=== PATIENT | male | born 1970 | race Hispanic/Latino ===

== ENCOUNTER 2018-06-26 18:00 | Inpatient (IN) | payer SELFPAY ==
[2018-06-26] MEDS ORDERED: VIBRAMYCIN PO ONE (19:21)
[2018-06-26] MEDS ORDERED: PERCOCET 5/325 PO ONE (19:21)
[2018-06-26] MEDS ORDERED: BOOSTRIX IM ONE (19:23)
--- NOTE | 2018-06-26 19:24 | Emergency Department Report ---
Blank Doc - Documentation Documentation: 48-year-old male presents to the hospital with complaints of dog bite from k9 dog while trying to run away from police. Patient has dog bites to his left lower leg and complains of severe pain. Tetanus is not up-to-date Patient will need copious wound irrigation to prevent infection Tetanus, doxycycline, and Percocet ordered Patient to be transferred to [facility] for irrigation and loose wound approximation of larger dog bite wound. Midlevel to evaluate
--- NOTE | 2018-06-26 21:34 | Emergency Department Report ---
<LAMBERTMARTHA Kami - Last Filed: 06/27/18 00:15> ED Animal Bite HPI - General Chief Complaint: Animal Bite Stated Complaint: DOG BITE Time Seen by Provider: 06/26/18 19:07 - Related Data Previous Rx's Medication Instructions Recorded Last Taken Type levoFLOXacin [Levaquin TAB] 750 mg PO Q24HR #5 tablet 06/28/18 Unknown Rx metroNIDAZOLE [Flagyl TAB] 500 mg PO Q8HR #15 tablet 06/28/18 Unknown Rx oxyCODONE /ACETAMINOPHEN [Percocet 1 tab PO Q6H PRN #10 tablet 06/28/18 Unknown Rx 5/325 mg] Allergies Allergy/AdvReac Type Severity Reaction Status Date / Time Penicillins Allergy Swelling Verified 06/26/18 19:19 ED Review of Systems ROS: Stated complaint: DOG BITE Other details as noted in HPI ED Past Medical Hx - Medications Home Medications: Home Medications Medication Instructions Recorded Confirmed Last Taken Type levoFLOXacin [Levaquin TAB] 750 mg PO Q24HR #5 tablet 06/28/18 Unknown Rx metroNIDAZOLE [Flagyl TAB] 500 mg PO Q8HR #15 tablet 06/28/18 Unknown Rx oxyCODONE /ACETAMINOPHEN [Percocet 1 tab PO Q6H PRN #10 tablet 06/28/18 Unknown Rx 5/325 mg] ED Course Vital Signs 06/26/18 06/27/18 06/27/18 18:29 00:52 03:30 Temperature 98 F 97.4 F L Pulse Rate 75 77 Pulse Rate [ 80 Right Radial] Respiratory 16 17 17 Rate Blood Pressure 129/73 Blood Pressure 139/85 [Left] O2 Sat by Pulse 100 97 Oximetry 06/27/18 03:41 Temperature Pulse Rate 82 Pulse Rate [ Right Radial] Respiratory Rate Blood Pressure Blood Pressure [Left] O2 Sat by Pulse Oximetry Critical care attestation.: If time is entered above; I have spent that time in minutes in the direct care of this critically ill patient, excluding procedure time. ED Disposition Clinical Impression: Laceration, Abrasion, Rectal bleeding Dog bite Qualifiers: Encounter type: initial encounter Qualified Code(s): W54.0XXA - Bitten by dog, initial encounter Disposition: OP ADMIT IP TO THIS HOSP Condition: Stable ED Medical Decision Making - Lab Data Result diagrams: 06/26/18 23:04 06/26/18 23:04 Lab Results 06/26/18 06/26/18 06/26/18 Range/Units 23:04 23:04 23:04 WBC 12.3 H (4.5-11.0) K/mm3 RBC 4.12 (3.65-5.03) M/mm3 Hgb 12.8 (11.8-15.2) gm/dl Hct 37.7 (35.5-45.6) % MCV 92 (84-94) fl MCH 31 (28-32) pg MCHC 34 (32-34) % RDW 14.7 (13.2-15.2) % Plt Count 287 (140-440) K/mm3 Lymph % (Auto) 26.0 (13.4-35.0) % [place] % (Auto) 6.6 (0.0-7.3) % Eos % (Auto) 0.7 (0.0-4.3) % Baso % (Auto) 0.5 (0.0-1.8) % Lymph # 3.2 (1.2-5.4) K/mm3 [place] # 0.8 (0.0-0.8) K/mm3 Eos # 0.1 (0.0-0.4) K/mm3 Baso # 0.1 (0.0-0.1) K/mm3 Seg Neutrophils % 66.2 (40.0-70.0) % Seg Neutrophils # 8.1 H (1.8-7.7) K/mm3 PT (12.2-14.9) Sec. INR (0.87-1.13) APTT (24.2-36.6) Sec. Sodium 142 (137-145) mmol/L Potassium 4.1 (3.6-5.0) mmol/L Chloride 104.0 (98-107) mmol/L Carbon Dioxide 25 (22-30) mmol/L Anion Gap 17 mmol/L BUN 15 (9-20) mg/dL Creatinine 1.0 (0.8-1.5) mg/dL Estimated GFR > 60 ml/min BUN/Creatinine Ratio 15 % Glucose 103 H (75-100) mg/dL Calcium 8.8 (8.4-10.2) mg/dL Total Bilirubin 0.20 (0.1-1.2) mg/dL AST 32 (5-40) units/L ALT 18 (7-56) units/L Alkaline Phosphatase 111 (35-129) units/L Total Protein 6.5 (6.3-8.2) g/dL Albumin 4.0 (3.9-5) g/dL Albumin/Globulin Ratio 1.6 % Lipase 28 (13-60) units/L // Range/Units 23:04 WBC (4.5-11.0) K/mm3 RBC (3.65-5.03) M/mm3 Hgb (11.8-15.2) gm/dl Hct (35.5-45.6) % MCV (84-94) fl MCH (28-32) pg MCHC (32-34) % RDW (13.2-15.2) % Plt Count (140-440) K/mm3 Lymph % (Auto) (13.4-35.0) % [place] % (Auto) (0.0-7.3) % Eos % (Auto) (0.0-4.3) % Baso % (Auto) (0.0-1.8) % Lymph # (1.2-5.4) K/mm3 [place] # (0.0-0.8) K/mm3 Eos # (0.0-0.4) K/mm3 Baso # (0.0-0.1) K/mm3 Seg Neutrophils % (40.0-70.0) % Seg Neutrophils # (1.8-7.7) K/mm3 PT 13.3 (12.2-14.9) Sec. INR 0.96 (0.87-1.13) APTT 24.7 (24.2-36.6) Sec. Sodium (137-145) mmol/L Potassium (3.6-5.0) mmol/L Chloride (98-107) mmol/L Carbon Dioxide (22-30) mmol/L Anion Gap mmol/L BUN (9-20) mg/dL Creatinine (0.8-1.5) mg/dL Estimated GFR ml/min BUN/Creatinine Ratio % Glucose (75-100) mg/dL Calcium (8.4-10.2) mg/dL Total Bilirubin (0.1-1.2) mg/dL AST (5-40) units/L ALT (7-56) units/L Alkaline Phosphatase (35-129) units/L Total Protein (6.3-8.2) g/dL Albumin (3.9-5) g/dL Albumin/Globulin Ratio % Lipase (13-60) units/L <ROSALBACHRISTIAN - Last Filed: 06/28/18 22:40> ED Animal Bite HPI - General Source: patient, EMS Mode of arrival: Stretcher Limitations: No Limitations - History of Present Illness Initial Comments: This is a 48-year-old male brought by [facility] nontoxic, well nourished in appearance, no acute signs of distress presents to the ED with c/o of dog bite. Patient stated he was bitten by a canine dog this evening. Patient denies any other trauma. Patient denies any headache, stiff neck, numbness, tingling, chest pain, shortness of breath, fever, chills nausea vomiting. Patient denies any significant past medical history. Allergies includes penicillin. Denies tetanus UTD. MD Complaint: animal bite -: This evening Left: Leg Animal: dog Animal Control Notified: No Description: immunizations UTD Mechanism: bite Pain Description: sharp Severity scale (0 -10): 8 Associated Symptoms: none. denies: erythema, discharge from wound, bleeding, fever, chills, rash, loss of consciousness, cough, headache, diaphoresis, shortness of breath Treatments Prior to Arrival: wound dressing(s) - Related Data Patient Tetanus UTD: No ED Review of Systems Constitutional: denies: chills, fever Eyes: denies: eye pain, eye discharge, vision change ENT: denies: ear pain, throat pain Respiratory: denies: cough, shortness of breath, wheezing Cardiovascular: denies: chest pain, palpitations Endocrine: no symptoms reported Gastrointestinal: denies: abdominal pain, nausea, diarrhea Genitourinary: denies: urgency, dysuria Musculoskeletal: denies: back pain, joint swelling, arthralgia Skin: denies: rash, lesions Neurological: denies: headache, weakness, paresthesias Psychiatric: denies: anxiety, depression Hematological/Lymphatic: denies: easy bleeding, easy bruising ED Past Medical Hx - Past Medical History Previous Medical History?: No - Surgical History Past Surgical History?: Yes Additional Surgical History: foot. stomach - Social History Smoking Status: Current Every Day Smoker Substance Use Type: Methamphetamines ED Physical Exam - General Limitations: No Limitations General appearance: alert, in no apparent distress - Head Head exam: Present: atraumatic, normocephalic - Eye Eye exam: Present: normal appearance - ENT ENT exam: Present: normal exam, mucous membranes moist - Neck Neck exam: Present: normal inspection - Respiratory Respiratory exam: Present: normal lung sounds bilaterally. Absent: respiratory distress, wheezes, rales, rhonchi, stridor, chest wall tenderness, accessory muscle use, decreased breath sounds, prolonged expiratory - Cardiovascular Cardiovascular Exam: Present: regular rate, normal rhythm, normal heart sounds. Absent: bradycardia, tachycardia, irregular rhythm, systolic murmur, diastolic murmur, rubs, gallop - GI/Abdominal GI/Abdominal exam: Present: soft, normal bowel sounds. Absent: distended, tenderness, guarding, rebound, rigid, diminished bowel sounds - Rectal Rectal exam: Present: deferred - Extremities Exam Extremities exam: Present: normal inspection, full ROM, tenderness, normal capillary refill. Absent: joint swelling - Expanded Lower Extremity Exam Left Hip exam: Present: normal inspection, full ROM. Absent: tenderness, swelling Upper Leg exam: Present: normal inspection, full ROM. Absent: tenderness, swelling Knee exam: Present: normal inspection, full ROM. Absent: tenderness, swelling Lower Leg exam: Present: normal inspection, full ROM, tenderness, abrasion. Absent: swelling, laceration, ecchymosis, deformity, crepidus, dislocation, erythema, palpable cord, Sebastian's sign Ankle exam: Present: normal inspection, full ROM. Absent: tenderness, swelling Foot/Toe exam: Present: normal inspection, full ROM. Absent: tenderness, swelling Neuro vascular tendon exam: Present: no vascular compromise. Absent: pulse deficit, abnormal cap refill, motor deficit, sensory deficit, tendon deficit, extremity cold to touch, pallor, abnormal 2-point discrimination, decreased fine /light touch, foot drop, peroneal nerve deficit, significant pain with passive ROM of distal joint Gait: Positive: observed and normal 1 - 1 cm superfical abrasion dog bite x2 2 - 2 cm superfical laceration 3 - 1 cm superfical abrasion dog bite - Back Exam Back exam: Present: normal inspection, full ROM. Absent: tenderness, CVA tenderness (R), CVA tenderness (L), muscle spasm, paraspinal tenderness, vertebral tenderness, rash noted - Neurological Exam Neurological exam: Present: alert, oriented X3, normal gait - Psychiatric Psychiatric exam: Present: normal affect, normal mood - Skin Skin exam: Present: warm, dry, intact, normal color. Absent: rash ED Course - Reevaluation(s) Reevaluation #1: 06/26/18 21:36 Patient is speaking in full sentences with no signs of distress noted. - Laceration /Wound Repair Left Leg Wound Location: lower extremity (leg leg) Wound Length (cm): 2 Wound's Depth, Shape: superficial Wound Explored: contaminated Irrigated w/ Saline (ccs): 40 Betadine Prep?: Yes Anesthesia: Lidocaine w/ Epi (2% with 1:200,000) Volume Anesthetic (ccs): 3 Wound Debrided: minimal Wound Repaired With: sutures Suture Size/Type: 4:0, proline Number of Sutures: 2 Layer Closure?: No Sterile Dressing Applied?: Yes Progress: Under sterile field, I used Betadine to clean the area. I then used 40 mL of normal saline to flush the area. I then used 2% lidocaine with epi 1-200,000 and injected 3 mL to the wound. I then used a 4-0 Prolene to loosely approximate laceration. Number of stitches 2. I then applied a sterile 4 x 4 with tape. Minimal bleeding noted but is under control. Patient tolerated procedure well with no signs of distress. ED Disposition Is pt being admited?: Yes ED Medical Decision Making - Lab Data Result diagrams: 06/28/18 05:54 06/27/18 05:13 - Medical Decision Making This is a 48-year-old male that presents with laceration and abrasions s/p dog bite. Patient is stable and was examined by me. The laceration has been loosely approximated and patient tolerated well. A sterile dressing has been applied. Patient was educated on proper wound care. Abrasions and laceration has been cleaned with soap and water and Betadine. Patient is discharged with Bactrim and Motrin. Patient was instructed to return in 10 days for suture removal. Patient was instructed to refer to Follow-up with a primary care doctor in 3-5 days or if symptoms worsen and continue return to emergency room as soon as possible. At time of discharge, the patient does not seem toxic or ill in appearance. No acute signs of distress noted. Patient agrees to discharge treatment plan of care. No further questions noted by the patient. While patient was getting discharged, patient stated that he went to the restroom and had a bowel movement and saw signifacnt amount of blood. Patient then went to the restroom again, and asked me to look at the stool, I saw bright red blood in the toilet as well as the rectum area. I will order labs, IV fluids, and CT of abdomen and care if signed out to Dr. Lambert for further treatment and exam.
[2018-06-26] MEDS ORDERED: NACL 0.9% 1000 ML 1,000 ML IV ONE (22:41)
[2018-06-26 23:23] LABS: Basophils # (Auto) 0.1 K/mm3 (0.0-0.1); Basophils % (Auto) 0.5 % (0.0-1.8); Eosinophils # (Auto) 0.1 K/mm3 (0.0-0.4); Eosinophils % (Auto) 0.7 % (0.0-4.3); Hematocrit 37.7 % (35.5-45.6); Hemoglobin 12.8 gm/dl (11.8-15.2); Lymphocytes # (Auto) 3.2 K/mm3 (1.2-5.4); Mean Corpuscular HGB Conc 34 % (32-34); Mean Corpuscular Hemoglobin 31 pg (28-32); Mean Corpuscular Volume 92 fl (84-94); Monocytes # (Auto) 0.8 K/mm3 (0.0-0.8); Monocytes % (Auto) 6.6 % (0.0-7.3); Platelet Count 287 K/mm3 (140-440); Red Blood Count 4.12 M/mm3 (3.65-5.03); Red Cell Distribution Width 14.7 % (13.2-15.2)
[2018-06-26 23:38] LABS: INR 0.96 (0.87-1.13)
[2018-06-26 23:39] LABS: Partial Thromboplastin Time 24.7 Sec. (24.2-36.6)
[2018-06-26 23:47] LABS: Alanine Aminotransferase 18 units/L (7-56); BUN/Creatinine Ratio 15; Blood Urea Nitrogen 15 mg/dL (9-20); Calcium 8.8 mg/dL (8.4-10.2); Hemolysis Index 9
--- NOTE | 2018-06-27 00:15 | Emergency Department Report ---
Blank Doc - Documentation Documentation: Patient was treated by [facility] for acute dog bite and developed rectal bleeding while in the ED. Patient states he felt like he had to have a bowel movement and to the restroom and had grossly bloody output without much stool. I reexamined the patient. Anus without signs of obvious hemorrhoids. Guaiac positive gross blood in stool obtained from rectal vault on exam. Abdomen is nontender with multiple abdominal scars. Patient states he had a lot of abdominal surgeries and recall what they were. The only when he is able to recall is when abdominal muscles were removed to be place in his left foot. Patient denies a previous history of rectal bleeding in bloody output did not began until he came into the ED. Labs reviewed and no signs of anemia or coagulopathy No signs of cardiovascular instability vital signs stable sea air land officer left after decision to admit. Warrants issued GI consultation. Case d/w Dr Yanez, will consult Patient will need admission to the hospital
[2018-06-27] MEDS ORDERED: ZOFRAN IV PRN (01:39)
[2018-06-27] MEDS ORDERED: TYLENOL PO PRN (01:39)
[2018-06-27] MEDS ORDERED: SODIUM CHLORIDE FLUSH SYRINGE 10 ML IV PRN (01:39)
[2018-06-27] MEDS ORDERED: NACL 0.9% 1000 ML 1,000 ML IV SCH (02:00)
[2018-06-27 02:23] LABS: Hematocrit 35.1 % (35.5-45.6)
--- NOTE | 2018-06-27 02:29 | Cat Scan Report ---
FINAL REPORT EXAM: CT ABDOMEN PELVIS W CON HISTORY: abd pain with rectal bleeding TECHNIQUE: Routine axial imaging was obtained of the abdomen and pelvis following the intravenous injection of 100 cc of Omnipaque 350. Oral contrast was not administered. Delayed imaging was obtained through the kidneys ureters and bladder. Sagittal and coronal reconstructions were reviewed. FINDINGS: The lung bases do not show infiltrates or effusions. There is a small hiatal hernia. The liver, gallbladder, biliary tree, pancreas, spleen, and adrenal glands appear normal. The kidneys enhance normally. There is a 17 mm in diameter cortical cyst laterally in the right kidney. There is no evidence hydronephrosis. The abdominal aorta is normal in caliber. The bowel loops are normal in caliber and course. The appendix is not enlarged. There is no evidence of free fluid or adenopathy. In the pelvis the prostate gland is normal size and contains calcifications. The bladder appears normal. The abdominal wall musculature reveals atrophy of the right rectus abdominus muscle. There is moderate sized umbilical hernia containing omental fat. The bones and soft tissues reveal areas of scar formation the right side of the abdominal wall presumably postsurgical in origin. There is multilevel disc degeneration in the lumbar spine. IMPRESSION: No acute process in the abdomen and pelvis. Moderate size umbilical hernia containing omental fat. Small cortical cysts in the right kidney. Normal appendix. Atrophy of the right rectus abdominus muscle. Right-sided inguinal hernia containing omental fat. Areas of subcutaneous scar formation along the right side of the abdominal wall presumably postsurgical in origin. Multilevel disc degeneration in the lumbar spine.
[2018-06-27 05:33] LABS: Basophils # (Auto) 0.1 K/mm3 (0.0-0.1); Basophils % (Auto) 0.5 % (0.0-1.8); Eosinophils # (Auto) 0.2 K/mm3 (0.0-0.4); Eosinophils % (Auto) 2.1 % (0.0-4.3); Hematocrit 34.8 % (35.5-45.6); Hemoglobin 12.1 gm/dl (11.8-15.2); Lymphocytes # (Auto) 3.2 K/mm3 (1.2-5.4); Mean Corpuscular HGB Conc 35 % (32-34); Mean Corpuscular Hemoglobin 32 pg (28-32); Mean Corpuscular Volume 92 fl (84-94); Monocytes # (Auto) 0.7 K/mm3 (0.0-0.8); Platelet Count 248 K/mm3 (140-440); Red Blood Count 3.79 M/mm3 (3.65-5.03); Red Cell Distribution Width 14.3 % (13.2-15.2)
[2018-06-27 05:58] LABS: BUN/Creatinine Ratio 13; Blood Urea Nitrogen 12 mg/dL (9-20); Hemolysis Index 8
--- NOTE | 2018-06-27 06:28 | History and Physical Report ---
History of Present Illness Date of examination: 06/27/18 Date of admission: 06/27/18 01:39 History of present illness: 48 year old man with no medical problems comes to the emergency room because he received a dog bite and was treated in the fast track. His leg was sutured. He is complaining of wanting to use the bathroom to have a bowel movement, when he got to the bathroom, he had usual amount of blood coming out. He also complained of abdominal pain, right side that feels like a twisting sensation, intermittent ever 1 minute, intensity following 10, no radiation, he can't identify exacerbating or relieving factor. No previous history of blood per rectum Review of systems Constitutional: no weight loss, chills, fever Ears, eyes, nose, mouth and throat: no nasal congestion, no nasal discharge, no sinus pressure, no vision change, no red eye. Neck: No neck pain or rigidity. Cardiovascular: no chest pain, palpitations Respiratory: no cough, shortness of breath Gastrointestinal: + abdominal pain hematochezia Genitourinary : no frequency , no hematuria Musculoskeletal: no joint swelling or muscle ache Integumentary: no rash, no pruritis Neurological: no parathesias, no numbness, no focal weakness Endocrine: no cold or heat intolerance, no polyuria or polydipsia Hematologic/Lymphatic: no easy bruising, no easy bleeding, no gland swelling Allergic/Immunologic: no urticaria, no angioedema. PAST MEDICAL HISTORY: None PAST SURGICAL HISTORY: Surgery on leg, abdomen SOCIAL HISTORY: No alcohol, no drugs, smoke one pack a day FAMILY HISTORY: Hypertension Medications and Allergies Allergies Allergy/AdvReac Type Severity Reaction Status Date / Time Penicillins Allergy Swelling Verified 06/26/18 19:19 Home Medications Medication Instructions Recorded Confirmed Last Taken Type levoFLOXacin [Levaquin TAB] 750 mg PO Q24HR #5 tablet 06/28/18 Unknown Rx metroNIDAZOLE [Flagyl TAB] 500 mg PO Q8HR #15 tablet 06/28/18 Unknown Rx oxyCODONE /ACETAMINOPHEN [Percocet 1 tab PO Q6H PRN #10 tablet 06/28/18 Unknown Rx 5/325 mg] Active Meds: Active Medications Acetaminophen (Tylenol) 650 mg PO Q4H PRN PRN Reason: Pain MILD(1-3)/Fever >100.5/DRIVER Sodium Chloride (Nacl 0.9% 1000 Ml) 1,000 mls @ 150 mls/hr IV DIRECT ALEJO Ondansetron HCl (Zofran) 4 mg IV Q8H PRN PRN Reason: Nausea And Vomiting Oxycodone/Acetaminophen (Percocet 5/325) 1 tab PO Q6H PRN PRN Reason: Pain, Moderate (4-6) Sodium Chloride (Sodium Chloride Flush Syringe 10 Ml) 10 ml IV BID ALEJO Sodium Chloride (Sodium Chloride Flush Syringe 10 Ml) 10 ml IV PRN PRN PRN Reason: LINE FLUSH Exam - Physical Exam Narrative exam: Gen. appearance: Patient lying in bed, no apparent distress HEENT: Normocephalic, atraumatic, pupils equally round and reactive to light, extraocular movement intact, and no sclericterus,. No JVD or thyromegaly or nodule,neck supple, no carotid bruit ,mucous membranes moist, no exudate or erythema Heart: S1, S2, regular rate and rhythm Lungs: Clear bilaterally, breathing comfortable Abdomen: Positive bowel sounds, non-tender, nondistended, no organomegaly Extremity:no edema cyanosis, clubbing, left leg wrapped in a bandage Skin: no rash, dry, warm Neuro: Oriented 3, cranial nerves II-12 intact, speech is fluent, motor and sensory intact - Constitutional Vitals: Temp Pulse Resp BP Pulse Ox 98.3 F 71 22 133/93 93 06/27/18 04:38 06/27/18 04:38 06/27/18 04:38 06/27/18 04:38 06/27/18 04:38 Results - Labs CBC & Chem 7: 06/28/18 05:54 06/27/18 05:13 Labs: Abnormal lab results 06/26/18 06/26/18 06/27/18 Range/Units 23:04 23:04 02:14 WBC 12.3 H (4.5-11.0) K/mm3 Hct 35.1 L (35.5-45.6) % MCHC (32-34) % Seg Neutrophils # 8.1 H (1.8-7.7) K/mm3 Carbon Dioxide (22-30) mmol/L Glucose 103 H (75-100) mg/dL Calcium (8.4-10.2) mg/dL 06/27/18 06/27/18 Range/Units 05:13 05:13 WBC (4.5-11.0) K/mm3 Hct 34.8 L (35.5-45.6) % MCHC 35 H (32-34) % Seg Neutrophils # (1.8-7.7) K/mm3 Carbon Dioxide 21 L (22-30) mmol/L Glucose 131 H (75-100) mg/dL Calcium 8.0 L (8.4-10.2) mg/dL - Imaging and Cardiology EKG: image reviewed CT scan - abdomen: report reviewed CT scan - pelvis: report reviewed Assessment and Plan Assessment Blood per rectum Status post dog bite Plan Admit to medicine Check serial hemoglobin, start IV fluids Consult GI, DVT prophylaxis
[2018-06-27 09:36] LABS: Hematocrit 35.6 % (35.5-45.6); Hemoglobin 12.4 gm/dl (11.8-15.2)
[2018-06-27] MEDS: SODIUM CHLORIDE FLUSH SYRINGE 10 ML IV SCH ×2 (10:55→22:32)
--- NOTE | 2018-06-27 11:32 | Gastroenterology Consultation ---
<EDNA MORAN - Last Filed: 06/27/18 11:44> History of Present Illness - Reason for Consult Consult date: 06/27/18 rectal bleeding Requesting physician: MARTHA ROBINS - History of Present Illness Patient is a 48 y/o male with PMH of substance abuse who was brought to ED by [facility] after receiving a dog bite while trying to run away from police. While in ED he had a BM with rectal bleeding with bright red blood to which GI has been consulted. CT showed an umbilical hernia containing omental fat and kidney cysts but no acute process. This morning patient was resting in bed w/o acute distress. No further active signs of bleeding overnight or this am. No hematemesis or melena. Admits to intermittent right sided abdominal cramping that has been chronic s/p abdominal surgery over 10 years ago (muscle from stomach was removed and used to repair foot injury). Denies fever, wt loss, CP, SOB, dizziness, N/V, diarrhea, or constipation. Tolerating clears. No rectal pain or recent rectal trauma. No hx of GI bleeding or previous colonoscopy. Past History Past Medical History: No medical history Past Surgical History: Other (stomach, foot) Social history: smoking, other (methamphetamines) Family history: hypertension Medications and Allergies Allergies Allergy/AdvReac Type Severity Reaction Status Date / Time Penicillins Allergy Swelling Verified 06/26/18 19:19 Home Medications Medication Instructions Recorded Confirmed Last Taken Type No Known Home Medications [No 06/27/18 06/27/18 Unknown History Reported Home Medications] Active Meds: Active Medications Acetaminophen (Tylenol) 650 mg PO Q4H PRN PRN Reason: Pain MILD(1-3)/Fever >100.5/DRIVER Sodium Chloride (Nacl 0.9% 1000 Ml) 1,000 mls @ 150 mls/hr IV DIRECT ALEJO Ondansetron HCl (Zofran) 4 mg IV Q8H PRN PRN Reason: Nausea And Vomiting Oxycodone/Acetaminophen (Percocet 5/325) 1 tab PO Q6H PRN PRN Reason: Pain, Moderate (4-6) Sodium Chloride (Sodium Chloride Flush Syringe 10 Ml) 10 ml IV BID [facility] Last Admin: 06/27/18 10:55 Dose: 10 ml Sodium Chloride (Sodium Chloride Flush Syringe 10 Ml) 10 ml IV PRN PRN PRN Reason: LINE FLUSH Review of Systems - Review of Systems All systems: negative Gastrointestinal: abdominal pain (chronic, stable (CT negative)), BRBPR Exam - Constitutional Vital Signs: Temp Pulse Resp BP Pulse Ox 97.8 F 64 20 124/84 96 06/27/18 07:51 06/27/18 07:51 06/27/18 07:51 06/27/18 07:51 06/27/18 10:25 General appearance: no acute distress, disheveled - Respiratory Respiratory: bilateral: CTA - Cardiovascular Rhythm: regular Heart Sounds: Present: S1 & S2 - Gastrointestinal General gastrointestinal: Present: soft, non-tender, non-distended, normal bowel sounds, other (+scars from previous surgery) Rectal Exam: normal rectal tone, stool brown, no stool bloody, no mass - Musculoskeletal Musculoskeletal: other (dressing on Left leg) - Neurologic Neurological: alert and oriented x3 - Labs CBC & Chem 7: 06/27/18 08:44 06/27/18 05:13 Lab Results: Laboratory Results - last 24 hr 06/26/18 06/26/18 06/26/18 23:04 23:04 23:04 WBC 12.3 H RBC 4.12 Hgb 12.8 Hct 37.7 MCV 92 MCH 31 MCHC 34 RDW 14.7 Plt Count 287 Lymph % (Auto) 26.0 [place] % (Auto) 6.6 Eos % (Auto) 0.7 Baso % (Auto) 0.5 Lymph # 3.2 [place] # 0.8 Eos # 0.1 Baso # 0.1 Seg Neutrophils % 66.2 Seg Neutrophils # 8.1 H PT INR APTT Sodium 142 Potassium 4.1 Chloride 104.0 Carbon Dioxide 25 Anion Gap 17 BUN 15 Creatinine 1.0 Estimated GFR > 60 BUN/Creatinine Ratio 15 Glucose 103 H Calcium 8.8 Total Bilirubin 0.20 AST 32 ALT 18 Alkaline Phosphatase 111 Total Protein 6.5 Albumin 4.0 Albumin/Globulin Ratio 1.6 Lipase 28 Blood Type Antibody Screen 06/26/18 06/26/18 06/27/18 23:04 23:04 02:14 WBC RBC Hgb 12.0 Hct 35.1 L MCV MCH MCHC RDW Plt Count Lymph % (Auto) [place] % (Auto) Eos % (Auto) Baso % (Auto) Lymph # [place] # Eos # Baso # Seg Neutrophils % Seg Neutrophils # PT 13.3 INR 0.96 APTT 24.7 Sodium Potassium Chloride Carbon Dioxide Anion Gap BUN Creatinine Estimated GFR BUN/Creatinine Ratio Glucose Calcium Total Bilirubin AST ALT Alkaline Phosphatase Total Protein Albumin Albumin/Globulin Ratio Lipase Blood Type O POSITIVE Antibody Screen Negative 06/27/18 06/27/18 06/27/18 05:13 05:13 08:44 WBC 9.7 RBC 3.79 Hgb 12.1 12.4 Hct 34.8 L 35.6 MCV 92 MCH 32 MCHC 35 H RDW 14.3 Plt Count 248 Lymph % (Auto) 33.0 [place] % (Auto) 7.0 Eos % (Auto) 2.1 Baso % (Auto) 0.5 Lymph # 3.2 [place] # 0.7 Eos # 0.2 Baso # 0.1 Seg Neutrophils % 57.4 Seg Neutrophils # 5.6 PT INR APTT Sodium 139 Potassium 3.6 Chloride 103.3 Carbon Dioxide 21 L Anion Gap 18 BUN 12 Creatinine 0.9 Estimated GFR > 60 BUN/Creatinine Ratio 13 Glucose 131 H Calcium 8.0 L Total Bilirubin AST ALT Alkaline Phosphatase Total Protein Albumin Albumin/Globulin Ratio Lipase Blood Type Antibody Screen Assessment and Plan 1.rectal bleeding -H/H WNL (12.4/35.6)-stable -continue to monitor H/H and transfuse as needed -BM x 1 yesterday with bright red blood -no further active signs of bleeding overnight or this am (rectal revealed brown stool) -etiology unclear- likely anorectal in origin -clinically, patient is stable with no clinical evidence of significant GI bleeding -recommend outpatient colonoscopy for further evaluation -okay to advance diet -continue supportive care -patient okay to be d/c per GI standpoint with follow up clinic appt -will sign off, please call if needed <LACIE ORELLANA - Last Filed: 06/27/18 12:03> Medications and Allergies Active Meds: Active Medications Acetaminophen (Tylenol) 650 mg PO Q4H PRN PRN Reason: Pain MILD(1-3)/Fever >100.5/DRIVER Sodium Chloride (Nacl 0.9% 1000 Ml) 1,000 mls @ 150 mls/hr IV DIRECT ALEJO Ondansetron HCl (Zofran) 4 mg IV Q8H PRN PRN Reason: Nausea And Vomiting Oxycodone/Acetaminophen (Percocet 5/325) 1 tab PO Q6H PRN PRN Reason: Pain, Moderate (4-6) Sodium Chloride (Sodium Chloride Flush Syringe 10 Ml) 10 ml IV BID ALEJO Last Admin: 06/27/18 10:55 Dose: 10 ml Sodium Chloride (Sodium Chloride Flush Syringe 10 Ml) 10 ml IV PRN PRN PRN Reason: LINE FLUSH Exam - Constitutional Vital Signs: Temp Pulse Resp BP Pulse Ox 97.5 F L 71 18 136/84 92 06/27/18 11:32 06/27/18 11:32 06/27/18 11:32 06/27/18 11:32 06/27/18 11:32 - Labs CBC & Chem 7: 06/27/18 08:44 06/27/18 05:13 Lab Results: Laboratory Results - last 24 hr 06/26/18 06/26/18 06/26/18 23:04 23:04 23:04 WBC 12.3 H RBC 4.12 Hgb 12.8 Hct 37.7 MCV 92 MCH 31 MCHC 34 RDW 14.7 Plt Count 287 Lymph % (Auto) 26.0 [place] % (Auto) 6.6 Eos % (Auto) 0.7 Baso % (Auto) 0.5 Lymph # 3.2 [place] # 0.8 Eos # 0.1 Baso # 0.1 Seg Neutrophils % 66.2 Seg Neutrophils # 8.1 H PT INR APTT Sodium 142 Potassium 4.1 Chloride 104.0 Carbon Dioxide 25 Anion Gap 17 BUN 15 Creatinine 1.0 Estimated GFR > 60 BUN/Creatinine Ratio 15 Glucose 103 H Calcium 8.8 Total Bilirubin 0.20 AST 32 ALT 18 Alkaline Phosphatase 111 Total Protein 6.5 Albumin 4.0 Albumin/Globulin Ratio 1.6 Lipase 28 Blood Type Antibody Screen 06/26/18 06/26/18 06/27/18 23:04 23:04 02:14 WBC RBC Hgb 12.0 Hct 35.1 L MCV MCH MCHC RDW Plt Count Lymph % (Auto) [place] % (Auto) Eos % (Auto) Baso % (Auto) Lymph # [place] # Eos # Baso # Seg Neutrophils % Seg Neutrophils # PT 13.3 INR 0.96 APTT 24.7 Sodium Potassium Chloride Carbon Dioxide Anion Gap BUN Creatinine Estimated GFR BUN/Creatinine Ratio Glucose Calcium Total Bilirubin AST ALT Alkaline Phosphatase Total Protein Albumin Albumin/Globulin Ratio Lipase Blood Type O POSITIVE Antibody Screen Negative 06/27/18 06/27/18 06/27/18 05:13 05:13 08:44 WBC 9.7 RBC 3.79 Hgb 12.1 12.4 Hct 34.8 L 35.6 MCV 92 MCH 32 MCHC 35 H RDW 14.3 Plt Count 248 Lymph % (Auto) 33.0 [place] % (Auto) 7.0 Eos % (Auto) 2.1 Baso % (Auto) 0.5 Lymph # 3.2 [place] # 0.7 Eos # 0.2 Baso # 0.1 Seg Neutrophils % 57.4 Seg Neutrophils # 5.6 PT INR APTT Sodium 139 Potassium 3.6 Chloride 103.3 Carbon Dioxide 21 L Anion Gap 18 BUN 12 Creatinine 0.9 Estimated GFR > 60 BUN/Creatinine Ratio 13 Glucose 131 H Calcium 8.0 L Total Bilirubin AST ALT Alkaline Phosphatase Total Protein Albumin Albumin/Globulin Ratio Lipase Blood Type Antibody Screen Assessment and Plan - Patient Problems (1) Rectal bleeding Current Visit: Yes Status: Acute Plan to address problem: The patient was personally seen and examined. Apparent minor rectal bleeding, likely hemorrhoidal. Normal H&H and no blood in rectum on exam. Outpatient colonscopy is recommended. Will s/o and f/u prn this admission. Thank you for this consultation. Lacie Orellana MD
[2018-06-27 13:34] LABS: Hematocrit 37.3 % (35.5-45.6); Hemoglobin 12.7 gm/dl (11.8-15.2)
--- NOTE | 2018-06-27 13:38 | Event Note ---
Date: 06/27/18 Patient seen and examined today. No bleeding per rectum today. His H&H remain stable. We'll consult wound care nurse for the LLE wound secondary to dog bite. Patient can be discharged in a.m. if clinically stable
[2018-06-27] MEDS ORDERED: FLAGYL 500 MG/100 ML 500 MG/100 ML BAG IV SCH (14:00)
[2018-06-27] MEDS ORDERED: LEVAQUIN 750MG/150ML 750 MG/150 ML BAG IV SCH (14:00)
[2018-06-27] MEDS: FLAGYL PO SCH ×2 (14:52→21:49)
[2018-06-27] MEDS: LEVAQUIN PO SCH (14:53)
[2018-06-27] MEDS: PERCOCET 5/325 PO PRN (21:47)
[2018-06-28 05:30] VITALS: BP 134/92
[2018-06-28] MEDS: FLAGYL PO SCH ×2 (06:09→13:28)
[2018-06-28 06:23] LABS: Basophils % (Auto) 0.3 % (0.0-1.8); Eosinophils # (Auto) 0.2 K/mm3 (0.0-0.4); Eosinophils % (Auto) 2.6 % (0.0-4.3); Hematocrit 37.8 % (35.5-45.6); Hemoglobin 12.9 gm/dl (11.8-15.2); Lymphocytes # (Auto) 2.6 K/mm3 (1.2-5.4); Lymphocytes % (Auto) 30.5 % (13.4-35.0); Mean Corpuscular HGB Conc 34 % (32-34); Mean Corpuscular Hemoglobin 32 pg (28-32); Mean Corpuscular Volume 92 fl (84-94); Monocytes # (Auto) 0.6 K/mm3 (0.0-0.8); Monocytes % (Auto) 7.3 % (0.0-7.3); Platelet Count 253 K/mm3 (140-440); Red Cell Distribution Width 14.7 % (13.2-15.2)
[2018-06-28] MEDS: LEVAQUIN PO SCH (10:42)
[2018-06-28] MEDS: SODIUM CHLORIDE FLUSH SYRINGE 10 ML IV SCH (10:42)
[2018-06-28] MEDS: PERCOCET 5/325 PO PRN (12:05)
--- NOTE | 2018-06-28 13:16 | Discharge Summary ---
Providers - Providers Date of Admission: 06/27/18 01:39 Date of discharge: 06/28/18 Attending physician: AB SERRANO 06/27/18 00:21 Consult to Physician [CONS] Urgent Comment: Dr. Lambert spoke with Dr. Siegel @ 0018 Consulting Provider: OLE SIEGEL Physician Instructions: Reason For Exam: rectal bleeding 06/27/18 13:32 Consult to Wound/ET Nurse [CONS] Routine Reason For Exam: dog bite LLE Primary care physician: [employer] Hospitalization Condition: Stable Hospital course: Discharge diagnosis: Blood per rectum, h/h stable, colonoscopy outpt Status post dog bite, cont abx Disposition: - TO HOME OR SELFCARE Time spent for discharge: 34 minutes Core Measure Documentation - Palliative Care Palliative Care/ Comfort Measures: Not Applicable - Core Measures Any of the following diagnoses?: none Exam - Constitutional Vitals: Temp Pulse Resp BP Pulse Ox 98.9 F 78 20 134/92 94 06/28/18 05:29 06/28/18 10:00 06/28/18 12:05 06/28/18 05:29 06/28/18 10:00 Plan Activity: advance as tolerated Weight Bearing Status: Weight Bear as Tolerated Diet: low fat Wound: per wound nurse instructions Follow up with: PRIMARY CARE, [Primary Care Provider] - 3-5 Days Prescriptions: levoFLOXacin [Levaquin TAB] 750 mg PO Q24HR #5 tablet metroNIDAZOLE [Flagyl TAB] 500 mg PO Q8HR #15 tablet oxyCODONE /ACETAMINOPHEN [Percocet 5/325 mg] 1 tab PO Q6H PRN #10 tablet PRN Reason: Pain, Moderate (4-6)
== END 2018-06-28 07:30 | DRG 379 ==
LOC: ED 18:00 → 4A 06-27 01:39 → EEVIPCON 06-27 01:39
PROVIDERS: ADMIT Internal Medicine; ATTEND Internal Medicine
PROC: 0HQLXZZ Repair Left Lower Leg Skin, External Approach (ICD-10-PCS; principal; 2018-06-27)
DX: K62.5 Hemorrhage of anus and rectum (principal); S81.812A Laceration without foreign body, left lower leg, initial encounter; F17.200 Nicotine dependence, unspecified, uncomplicated; F15.90 Other stimulant use, unspecified, uncomplicated; Z82.49 Family history of ischemic heart disease and other diseases of the circulatory system; N28.1 Cyst of kidney, acquired; Y93.02 Activity, running; W54.0XXA Bitten by dog, initial encounter; Y92.89 Other specified places as the place of occurrence of the external cause; Y99.8 Other external cause status; Z88.0 Allergy status to penicillin
CPT/HCPCS: 36415; 74177; 80048; 80053; 82271; 83690; 85014; 85018; 85025; 85610; 85730; 86850; 86900; 86901; 90715; 96372; J7030; Q9967